=== PATIENT | male | born 1975 | race African-American/Black ===

== ENCOUNTER 2017-07-31 12:30 | Emergency (ER) | payer OTHER ==
[2017-07-31 12:45] VITALS: BP 119/70
--- NOTE | 2017-07-31 13:02 | UC ---
Throat Pain/Nasal Quan HPI - HPI Summary HPI Summary: 42 Y/O male being seen for nasal congestion, cough and sore throat x 2 days. Denies fever, chills, nausea or vomiting. Able to eat and drink without difficulty. medical history and medications reviewed at this visit. - History of Current Complaint Chief Complaint: UCGeneralIllness Stated Complaint: SORE THROAT Time Seen by Provider: 07/31/17 12:44 Hx Obtained From: Patient Onset/Duration: Gradual Onset, Lasting Days Severity: Mild Pain Intensity: 4 Pain Scale Used: 0-10 Numeric Cough: Nonproductive Associated Signs & Symptoms: Positive: Nasal Discharge - Epiglottits Risk Factors Epiglottis Risk Factors: Negative - Allergies/Home Medications Allergies/Adverse Reactions: Allergies Allergy/AdvReac Type Severity Reaction Status Date / Time No Known Allergies Allergy Verified 07/31/17 12:45 Home Medications: Home Medications NK [No Home Medications Reported] 07/31/17 [History Confirmed 07/31/17] PMH/Surg Hx/FS Hx/Imm Hx Previously Healthy: Yes - Surgical History Surgical History: None Surgery Procedure, Year, and Place: denies - Family History Known Family History: Positive: None Negative: Blood Disorder - denies family hx clotting problems - Social History Alcohol Use: Rare Substance Use Type: Marijuana Substance Use Comment - Amount & Last Used: former marijuana in 2012 Smoking Status (MU): Never Smoked Tobacco Review of Systems Constitutional: Negative Skin: Negative Eyes: Negative ENT: Sore Throat, Nasal Discharge Respiratory: Cough Cardiovascular: Negative Gastrointestinal: Negative Genitourinary: Negative Motor: Negative Neurovascular: Negative Musculoskeletal: Negative Neurological: Negative Psychological: Negative Is Patient Immunocompromised?: No All Other Systems Reviewed And Are Negative: Yes Physical Exam Triage Information Reviewed: Yes Appearance: Well-Appearing Vital Signs: Initial Vital Signs Temp 98.9 F 07/31/17 12:37 Pulse 88 07/31/17 12:37 Resp 18 07/31/17 12:37 BP 119/70 07/31/17 12:37 Pulse Ox 99 07/31/17 12:37 Eye Exam: Normal ENT Exam: Other ENT: Positive: Nasal drainage Neck exam: Normal Neck: Positive: No Lymphadenopathy Respiratory Exam: Normal Respiratory: Positive: Lungs clear Cardiovascular Exam: Normal Cardiovascular: Positive: RRR Abdominal Exam: Normal Musculoskeletal Exam: Normal Musculoskeletal: Positive: Strength Intact Neurological Exam: Normal Neurological: Positive: Alert Psychological Exam: Normal Skin Exam: Normal Throat Pain/Nasal Course/Dx - Differential Dx/Diagnosis Differential Diagnosis/HQI/PQRI: Pharyngitis, Sinusitis, Tonsillitis, URI Provider Diagnoses: Viral illness Discharge - Sign-Out/Discharge Documenting (check all that apply): Discharge/Admit/Transfer - Discharge Plan Condition: Stable Disposition: HOME Patient Education Materials: Viral Syndrome (ED) Referrals: Jesus Crooks MD [Primary Care Provider] - Additional Instructions: Your strep test was negative. You most likely have a viral illness that will improve over the next week. Take plain Mucinex twice daily for continued nasal congestion. Increase fluids and get plenty of rest. You have significant cerumen (wax) buildup in your R ear. You can buy Debrox at the pharmacy for soften the cerumen. Do not put Q-tips in your ears. Follow up as needed with your primary medical provider or Urgent care. - Billing Disposition and Condition Condition: STABLE Disposition: HOME
== END 2017-07-31 13:15 | disposition home or self-care (01) ==
LOC: UCEAST 12:30
DX: B34.9 Viral infection, unspecified (principal)
CPT/HCPCS: 87651; 99211; G0463

== ENCOUNTER 2017-08-05 15:22 | Emergency (ER) | payer OTHER ==
[2017-08-05 15:38] VITALS: BP 121/69
--- NOTE | 2017-08-05 15:47 | ED ---
Respiratory - HPI Summary HPI Summary: 42-year-old male presents with cough for the past couple days. He states he had a sinus congestion for the past week. He states his sinus congestion is better. Denies any headache. He denies any chest pain or shortness of breath. He denies any sore throat. He denies any fevers. Denies any history asthma. He has been using mucinex. He is nonsmoker. - History of Current Complaint Chief Complaint: UCUpperExtremity Stated Complaint: URI Time Seen by Provider: 08/05/17 15:40 Pain Intensity: 5 - Allergy/Home Medications Allergies/Adverse Reactions: Allergies Allergy/AdvReac Type Severity Reaction Status Date / Time No Known Allergies Allergy Verified 08/05/17 15:38 PMH/Surg Hx/FS Hx/Imm Hx Endocrine/Hematology History: Denies: Hx Diabetes, Hx Thyroid Disease Cardiovascular History: Denies: Hx Hypertension, Hx Pacemaker/ICD Respiratory History: Reports: Hx Asthma, Hx Pneumonia Denies: Hx Chronic Obstructive Pulmonary Disease (COPD) GI History: Denies: Hx Ulcer History: Denies: Hx Renal Disease Sensory History: Denies: Hx Hearing Aid Psychiatric History: Denies: Hx Panic Disorder - Surgical History Surgery Procedure, Year, and Place: denies Infectious Disease History: No Infectious Disease History: Denies: Hx Hepatitis, Hx Human Immunodeficiency Virus (HIV), History Other Infectious Disease, Traveled Outside the [place] in Last 30 Days - Family History Known Family History: Positive: None Negative: Blood Disorder - denies family hx clotting problems - Social History Alcohol Use: Rare Substance Use Type: Reports: Marijuana Substance Use Comment - Amount & Last Used: former marijuana in 2012 Smoking Status (MU): Never Smoked Tobacco Review of Systems Negative: Fever Positive: Nasal Discharge. Negative: Sore Throat Negative: Chest Pain Positive: Cough. Negative: Shortness Of Breath All Other Systems Reviewed And Are Negative: Yes Physical Exam Triage Information Reviewed: Yes Vital Signs On Initial Exam: Initial Vitals Temp Pulse Resp BP Pulse Ox 98.9 F 83 16 121/69 99 08/05/17 15:34 08/05/17 15:34 08/05/17 15:34 08/05/17 15:34 08/05/17 15:34 Vital Signs Reviewed: Yes Appearance: Positive: Well-Appearing Skin: Positive: Warm, Dry Head/Face: Positive: Normal Head/Face Inspection Eyes: Positive: Normal, EOMI, KATELYNN, Conjunctiva Clear ENT: Positive: Normal ENT inspection, Pharynx normal, Other - right ear cerumen. Negative: Sinus tenderness Neck: Positive: Supple, Nontender, No Lymphadenopathy Respiratory/Lung Sounds: Positive: Clear to Auscultation, Breath Sounds Present , Other - neg egophony Cardiovascular: Positive: Normal, RRR Abdomen Description: Positive: Nontender, Soft Bowel Sounds: Positive: Present Musculoskeletal: Positive: Normal Neurological: Positive: Normal Psychiatric: Positive: Normal Diagnostics - Vital Signs Vital Signs Temp Pulse Resp BP Pulse Ox 08/05/17 15:34 98.9 F 83 16 121/69 99 - Laboratory Lab Statement: Any lab studies that have been ordered have been reviewed, and results considered in the medical decision making process. Disposition - Course Course Of Treatment: 42-year-old male presents with cough for the past couple days. He states he had a sinus congestion for the past week. He states his sinus congestion is better. Denies any headache. He denies any chest pain or shortness of breath. He denies any sore throat. He denies any fevers. Denies any history asthma. He has been using mucinex. He is nonsmoker. on exam nontender sinuses. Lungs clear to auscultation. neg egophony. will treat with prednisone and tessalon. patient understand and agrees with plan. - Differential Dx - Cardiopulmonary Differential Diagnoses - Cardiopulmonary: Bronchitis, Lower Resp Infection, Other - upper resp infection - Diagnoses Provider Diagnoses: Upper respiratory infection Discharge - Sign-Out/Discharge Documenting (check all that apply): Discharge/Admit/Transfer - Discharge Plan Condition: Good Disposition: HOME Prescriptions: Benzonatate CAP* [Tessalon 100 MG CAP*] 100 mg PO TID PRN #21 cap PRN Reason: Cough Fluticasone NASAL SPRAY 50MCG* [Flonase NASAL SPRAY 50MCG*] 1 spray BOTH NARES DAILY #1 btl predniSONE TAB* [Deltasone TAB*] 40 mg PO DAILY #5 tab Patient Education Materials: Upper Respiratory Infection (ED) Referrals: Jesus Crooks MD [Primary Care Provider] - Additional Instructions: Use Tessalon three times a day for cough Take flonase one spray each nostril daily Take steroid once a day for 5 days Use saline in nose Use humidifier for cough Follow up with primary care physician in 5 days Return to ED if develop any new or worsening symptoms - Billing Disposition and Condition Condition: GOOD Disposition: HOME
== END 2017-08-05 15:55 | disposition home or self-care (01) ==
LOC: UCEAST 15:22
DX: J06.9 Acute upper respiratory infection, unspecified (principal); J45.909 Unspecified asthma, uncomplicated
CPT/HCPCS: 99212; G0463